=== PATIENT | male | born 1985 | race Caucasian/White ===

== ENCOUNTER 2017-01-22 15:55 | Emergency (ER) | payer BC ==
[~2017-01-22] VITALS: Ht 180.3 cm; Wt 131.5 kg
--- NOTE | 2017-01-22 16:01 | Emergency Room Report ---
History of Present Illness Time Seen by 1600 Presenting Problem in Triage Pt arrived:Walked Presenting Problem:PT REPORTS EATING CHICKEN EALIER TODAY AND STATES THINKS SWALLOWED A BONE AND THINKS BONES IS STUCK IN HIS ESPOPHAGUS. 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 N Clinical Suspician of Infection? N Mental Status: 1 - Regular (Normal Baseline) Sepsis Risk: Have you (or family members/close friends) recently traveled outside the [place]? N If Yes, where/when: Have you had exposure to infectious disease within the past month? N TB? Other? Specify: Comment Pt reports he was eating some chicken around 11:30AM and thinks he swallowed a bone and it feels like it is stuck in his mid chest area in the esophagus. Initially had trouble getting liquids down but on the way here did drink some liquids and they have stayed down but still feels like something stuck in esophagus. No fever and no other symptoms All his labs and plain xrays look normal. I called Dr. Saavedra , our surgeon principal solutions architect and he suggested gettting a thin Barium swallow to evaluate and if bone is stuck there he needs to be transferred to [facility] for removal due to the potential complications from going in after it. I have called [facility] and spoken with the ED and theywill see him in transfer Cardiac Chest Pain Chest pain indicative of cardiac No ALLERGIES Coded Allergies: No Known Allergies (01/22/17) Home Medications Reported Medications No Known Home Medications History Medical History General Angina: No [place]: No Hypertension? No Hyperlipidemia? No CHF? No COPD? No Asthma? No CVA? No Seizures? No Diabetes? No GB Disease: No MRSA? No TB? No Cancer? No Surgical Hx Previous Surgery?N Social History Alcohol Alcohol: No Review of Systems All Other Systems Reviewed and Negative Constitutional see HPI Respiratory see HPI Gastrointestinal see HPI Physical Exam Vital Signs Vital Signs Date Time Temp Pulse Resp B/P Pulse O2 O2 Flow FiO2 Ox Delivery Rate 01/22 1918 95 18 118/76 98 01/22 1840 96 18 129/75 97 01/22 1759 98.3 95 18 130/76 97 01/22 1709 101 18 137/73 98 01/22 1637 98.1 99 18 135/93 96 01/22 1604 97.9 112 18 132/106 98 General Appearance normal appearance, WD/WN, no apparent distress, obese Respiratory Status No: respiratory distress. Lung Sounds bilateral: normal breath sounds. Cardiovascular normal exam, regular rate/rhythm Gastrointestinal normal bowel sounds, normal exam Neurologic alert, cat skinner II-XII nml as tested, normal exam Medical Decision Making LABS/Meds/Orders Pt receiving controlled substance in ED? No Results/Orders Laboratory Tests 01/22/171814: Sodium 141, Potassium 3.9, Chloride 105, Carbon Dioxide 30, BUN 15, Creatinine 1.2, Estimated Creat Clear 163, Estimated GFR (MDRD) 70, Glucose 142 H, Calcium 8.7, Total Bilirubin 0.4, AST 33, ALT 76, Alkaline Phosphatase 65, Total Protein 8.3 H, Albumin 4.0, Globulin 4.3 H, Albumin/Globulin Ratio 0.9 L, WBC 9.7, RBC 4.33 L, Hgb 14.2, Hct 41.0 L, MCV 94.7, RDW 12.4, Plt Count 228, MPV 5.6 L, Gran % 68.9, Gran # 6.7, Lymphocytes % 26.3, Monocytes % 4.1, Eosinophils % 0.4, Basophils % 0.2, Lymphocytes # 2.6, Monocytes # 0.4, Eosinophils # 0.0, Basophils # 0.0, PUBS MCHC 34.7, MCH 32.9 H Current Medication Orders Sig/Ion Start time Last Medication Dose Route Stop Time Status Admin Glucagon 1 MG ONCE ONE 01/22 1700 CAN IV 01/22 1701 Glucagon 1 MG ONCE ONE 01/22 1700 DC 01/22 IV 01/22 1701 1707 Sodium Chloride 10 ML PRN PRN 01/22 1700 AC IV 01/23 1647 Sodium Chloride 1,000 ML .Q6H40M 01/22 170 AC 01/22 IV 01/23 0448 1708 Sodium Chloride 10 ML PRN PRN 01/22 1700 AC IV 01/23 1648 Glucagon 0 .STK-MED ONE 01/22 1654 DC .ROUTE Sodium Chloride 1,000 ML .STK-MED ONE 01/22 1654 DC IV Orders Procedure Date/time Status CBC WITH AUTO DIFF 01/22 1810 Complete CHEM 12 PROFILE 01/22 1810 Complete IV SALINE LOCK 01/22 1648 Active Departure Departure Time of Disposition 1913 Disposition DC/XFER from ER to [facility]. Hosp Clinical Impression Primary Impression: Impacted esophageal foreign body Qualifiers: Encounter type: initial encounter Qualified Code: T18.108A - Unspecified foreign body in esophagus causing other injury, initial encounter Condition STABLE Additional Instructions Spoke with ER and they will accept in transfer to evaluate there in ED...Dr. Couch Pt may go POV Discharge Counseling Counseled pt/family regarding diagnosis, test results, follow up needs Prescriptions Current Visit Scripts No Known Home Medications ED Critical Care Critical Care No If Critical Care minutes are documented, the time involved in the performance of seperately reportable procedures was not counted toward critical care time documented. I directly delivered medical care to this critically ill and/or injured patient. Timely evaluation and treatment was necessary to address the significant organ system(s) dysfunction present in this patient. at 1926
--- NOTE | 2017-01-22 16:01 | Emergency Room Report ---
History of Present Illness Time Seen by 1600 Presenting Problem in Triage Pt arrived:Walked Presenting Problem:PT REPORTS EATING CHICKEN EALIER TODAY AND STATES THINKS SWALLOWED A BONE AND THINKS BONES IS STUCK IN HIS ESPOPHAGUS. PT STATES IS ABLE TO KEEP DOWN LIQUIDS Onset of symptoms date/time:01/22/17 or onset unknown for: Treatment Prior to Arrival: BAKER [facility]ENCH Provided by: Sepsis Risk Assessment: Temp: 98.1 B/P: 135/93 MAP: 114 Pulse: 99 Resp: 18 Recent fever? N Clinical Suspician of Infection? N Mental Status: 1 - Regular (Normal Baseline) Sepsis Risk: Have you (or family members/close friends) recently traveled outside the [place]? N If Yes, where/when: Have you had exposure to infectious disease within the past month? N TB? Other? Specify: Comment Pt reports he was eating some chicken around 11:30AM and thinks he swallowed a bone and it feels like it is stuck in his mid chest area in the esophagus. Initially had trouble getting liquids down but on the way here did drink some liquids and they have stayed down but still feels like something stuck in esophagus. No fever and no other symptoms All his labs and plain xrays look normal. I called Dr. Saavedra , our surgeon marketing and promotions manager and he suggested gettting a thin Barium swallow to evaluate and if bone is stuck there he needs to be transferred to [place] for removal due to the potential complications from going in after it. I have called [facility] and spoken with the ED and theywill see him in transfer Cardiac Chest Pain Chest pain indicative of cardiac No ALLERGIES Coded Allergies: No Known Allergies (01/22/17) Home Medications Reported Medications No Known Home Medications History Medical History General Angina: No [place]: No Hypertension? No Hyperlipidemia? No CHF? No COPD? No Asthma? No CVA? No Seizures? No Diabetes? No GB Disease: No MRSA? No TB? No Cancer? No Surgical Hx Previous Surgery?N Social History Alcohol Alcohol: No Review of Systems All Other Systems Reviewed and Negative Constitutional see HPI Respiratory see HPI Gastrointestinal see HPI Physical Exam Vital Signs Vital Signs Date Time Temp Pulse Resp B/P Pulse O2 O2 Flow FiO2 Ox Delivery Rate 01/22 1918 95 18 118/76 98 01/22 1840 96 18 129/75 97 01/22 1759 98.3 95 18 130/76 97 01/22 1709 101 18 137/73 98 01/22 1637 98.1 99 18 135/93 96 01/22 1604 97.9 112 18 132/106 98 General Appearance normal appearance, WD/WN, no apparent distress, obese Respiratory Status No: respiratory distress. Lung Sounds bilateral: normal breath sounds. 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 No Results/Orders Laboratory Tests 01/22/171814: Sodium 141, Potassium 3.9, Chloride 105, Carbon Dioxide 30, BUN 15, Creatinine 1.2, Estimated Creat Clear 163, Estimated GFR (MDRD) 70, Glucose 142 H, Calcium 8.7, Total Bilirubin 0.4, AST 33, ALT 76, Alkaline Phosphatase 65, Total Protein 8.3 H, Albumin 4.0, Globulin 4.3 H, Albumin/Globulin Ratio 0.9 L, WBC 9.7, RBC 4.33 L, Hgb 14.2, Hct 41.0 L, MCV 94.7, RDW 12.4, Plt Count 228, MPV 5.6 L, Gran % 68.9, Gran # 6.7, Lymphocytes % 26.3, Monocytes % 4.1, Eosinophils % 0.4, Basophils % 0.2, Lymphocytes # 2.6, Monocytes # 0.4, Eosinophils # 0.0, Basophils # 0.0, PUBS MCHC 34.7, MCH 32.9 H Current Medication Orders Sig/Ion Start time Last Medication Dose Route Stop Time Status Admin Glucagon 1 MG ONCE ONE 01/22 1700 CAN IV 01/22 1701 Glucagon 1 MG ONCE ONE 01/22 1700 DC 01/22 IV 01/22 1701 1707 Sodium Chloride 10 ML PRN PRN 01/22 1700 AC IV 01/23 1647 Sodium Chloride 1,000 ML .Q6H40M 01/22 170 AC 01/22 IV 01/23 0448 1708 Sodium Chloride 10 ML PRN PRN 01/22 1700 AC IV 01/23 1648 Glucagon 0 .STK-MED ONE 01/22 1654 DC .ROUTE Sodium Chloride 1,000 ML .STK-MED ONE 01/22 1654 DC IV Orders Procedure Date/time Status CBC WITH AUTO DIFF 01/22 1810 Complete CHEM 12 PROFILE 01/22 1810 Complete IV SALINE LOCK 01/22 1648 Active Departure Departure Time of Disposition 1913 Disposition DC/XFER from ER to [facility]. Hosp Clinical Impression Primary Impression: Impacted esophageal foreign body Qualifiers: Encounter type: initial encounter Qualified Code: T18.108A - Unspecified foreign body in esophagus causing other injury, initial encounter Condition STABLE Additional Instructions Spoke with ER and they will accept in transfer to evaluate there in ED...Dr. Couch Pt may go POV Discharge Counseling Counseled pt/family regarding diagnosis, test results, follow up needs Prescriptions Current Visit Scripts No Known Home Medications ED Critical Care Critical Care No If Critical Care minutes are documented, the time involved in the performance of seperately reportable procedures was not counted toward critical care time documented. I directly delivered medical care to this critically ill and/or injured patient. Timely evaluation and treatment was necessary to address the significant organ system(s) dysfunction present in this patient. at 1926
--- NOTE | 2017-01-22 16:34 | RADIOLOGY REPORT PS360 ---
CHEST(2 VIEWS-NOT PORTABLE) Ordering physician: Skip Swan MD Age: 31 years Male INDICATION: chest symptomsPOSSIBLE FB STUCK IN THROAT PROCEDURE: CHEST(2 VIEWS-NOT PORTABLE) FINDINGS no previous studies only fair inspiration on today's chest film. Diaphragm is down to the anterior fifth rib. No focal pneumonia. No radiopaque foreign body evident. Upper normal markings right infrahilar region most likely within normal limits. . nothing definitely acute. No pleural effusion. No pneumothorax. Heart normal size. Normal pulmonary vascularity. Hilar and mediastinal structures appear satisfactory. Chest wall unremarkable. T-spine intact. Understand the patient choked on chicken bone and feels like is lodged at the base the neck just above the sternal notch. No radiopaque foreign body is density seen here. I believe we see the pleural reflection of the anterior mediastinum projected over the lower trachea airway IMPRESSION ----- No active disease Nothing definite acute at chest
[2017-01-22 18:27] LABS: HEMOGLOBIN 14.2 g/dL (14.1-18.0); LYMPH # 2.6 K/mm3 (0.7-4.5); LYMPH % 26.3 % (10-50)
[2017-01-22 19:36] VITALS: BP 122/77
--- OUTSIDE RECORDS SUMMARY | 2017-01-23 07:06 | External Medical Summary Rpt ---
Author Author , Organization [employer] Address Unknown Phone Unavailable Purpose Continuity of Care Document - through 2016
--- OUTSIDE RECORDS SUMMARY | 2017-01-23 07:06 | External Medical Summary Rpt ---
Demographics Preferred Language Libyan Marital Status Unknown Caodaism Affiliation Unknown Race Unknown Ethnic Group Unknown Author Author , Organization [employer] Address Unknown Phone Unavailable Purpose Continuity of Care Document - through 2016 Immunization No patient found.
--- OUTSIDE RECORDS SUMMARY | 2017-01-23 07:06 | External Medical Summary Rpt ---
Author Author [employer] Miller, [employer] Organization [employer] Address Unknown Phone Unavailable
--- OUTSIDE RECORDS SUMMARY | 2017-01-23 07:06 | External Medical Summary Rpt ---
Author Author [employer] Organization [employer] Address Unknown Phone Unavailable Purpose Continuity of Care Document - through 2016
--- OUTSIDE RECORDS SUMMARY | 2017-01-23 07:06 | External Medical Summary Rpt ---
Demographics Preferred Language Ivorian Marital Status Unknown Sikhism Affiliation Unknown Race Unknown Ethnic Group Unknown Author Author , Organization [employer] Address Unknown Phone Unavailable Purpose Continuity of Care Document - through 2016 Immunization No patient found.
== END 2017-01-22 19:37 | disposition short-term general hospital (02) ==
LOC: ER 15:55
PROVIDERS: General Practice
DX: T17.298A Other foreign object in pharynx causing other injury, initial encounter (principal)